=== PATIENT | female | born 1950 | race Caucasian/White ===

== ENCOUNTER 2020-12-31 00:09 | Emergency (ER) | payer MEDICARE ==
[~2020-12-31 00:09] MED LIST: AMLO2.5T2 PO; ASPI-107 PO; ATOR40TA PO; CARV-50 PO; CLOP75TA15 PO; INSU100V5 IJ; ISOS30TA9 PO; LANTUS SQ; LOSA50TA3 PO; MARIJUANA PO; OMEP20TA5 PO; SERT50TA PO; TRAM50TA2 PO
[2020-12-31 00:43] LABS: BASOPHILS # (AUTO) 0.1 X10'3 (0-0.2); BASOPHILS % (AUTO) 1.6 % (0-1); EOSINOPHILS % (AUTO) 1.1 % (0-6); HEMATOCRIT 35.7 % (35.0-45.0); LYMPHOCYTES # (AUTO) 1.7 X10'3 (1.1-4.8); LYMPHOCYTES % (AUTO) 41.3 % (21-51); MEAN CORPUSCULAR HEMOGLOBIN 30.5 PG (27.0-31.0); MEAN CORPUSCULAR HGB CONC 33.7 g/dL (33.0-36.5); MEAN CORPUSCULAR VOLUME 90.5 FL (78-98); MEAN PLATELET VOLUME 7.9 FL (7.4-10.4); MONOCYTES # (AUTO) 0.6 X10'3 (0-0.9); NEUTROPHILS # (AUTO) 1.7 X10'3 (1.8-7.7); PLATELET COUNT 233 X10'3 (140-440); RED BLOOD COUNT 3.94 X10'6 (4.20-5.60); RED CELL DISTRIBUTION WIDTH 12.9 % (11.5-14.5); WHITE BLOOD COUNT 4.2 X10'3 (4.5-11.0)
[2020-12-31 00:50] LABS: ALANINE AMINOTRANSFERASE 21 U/L (12-78); ALBUMIN 3.3 G/DL (3.4-5.0); ALBUMIN/GLOBULIN RATIO 0.9 (1.1-1.5); ALKALINE PHOSPHATASE 76 IU/L (46-116); ANION GAP 8 (8-16); ASPARTATE AMINO TRANSFERASE 25 U/L (10-37); BILIRUBIN,TOTAL 0.2 MG/DL (0.1-1.0); BLOOD UREA NITROGEN 19 MG/DL (7-18); BUN/CREATININE RATIO 16.7 (6.6-38.0); CALCIUM 8.7 MG/DL (8.5-10.1); CHLORIDE 103 MMOL/L (99-107); CREATININE 1.14 MG/DL (0.40-0.90); GLUCOSE 106 MG/DL (70-104); POTASSIUM 4.1 MMOL/L (3.5-5.1); SODIUM 139 MMOL/L (135-145); TOTAL CARBON DIOXIDE 28.3 MMOL/L (24-32); eGFR 47 ML/MIN
[2020-12-31] MEDS ORDERED: acetaminophen 325mg tablet PO ONE (01:25)
[2020-12-31 03:30] VITALS: BP 112/95
[2020-12-31 05:35] LABS: PLATELET ESTIMATE NORMAL; TOTAL CELLS COUNTED 100
--- NOTE | 2020-12-31 05:53 | NUR ---
At approximately 0255 patient was found on floor of her room. Patient uncertain how she got there or what happened. Staff that was interviewed did not hear a fall. Patient was assessed by doctor, no issues found. Blood sugar was checked and found to be 54. Vital signs were stable. Patient was given food and juice. Patient was rechecked shortly afterwards and found to be 75. Then at 0404 approximately, patient was found to be 127. Patient waiting to be discharged to [facility] as they were closed overnight.
--- NOTE | 2020-12-31 08:37 | NUR ---
Alpa dumont in [facility] - 12/31/20 at 0837 by [email or web address] sia coles [phone]
== END 2020-12-31 09:46 | disposition home or self-care (01) ==
LOC: ER 00:10
DX: R07.89 Other chest pain (principal); R09.89 Other specified symptoms and signs involving the circulatory and respiratory systems; R05.9 Cough, unspecified; R68.83 Chills (without fever); E11.649 Type 2 diabetes mellitus with hypoglycemia without coma; R55 Syncope and collapse; I25.10 Atherosclerotic heart disease of native coronary artery without angina pectoris; Z95.5 Presence of coronary angioplasty implant and graft; Z88.8 Allergy status to other drugs, medicaments and biological substances; Z91.040 Latex allergy status; Z79.82 Long term (current) use of aspirin; Z79.899 Other long term (current) drug therapy
CPT/HCPCS: 36415; 71045; 80053; 82948; 83880; 84145; 84484; 85007; 85025; 93005; 99285